=== PATIENT | female | born 1990 | race Caucasian/White ===

== ENCOUNTER 2016-05-28 19:56 | Emergency (ER) | payer MEDICAID ==
[2016-05-28] MEDS ORDERED: TDaP 0.5 ML VIAL IM.VACC ONE (22:13)
== END 2016-05-28 22:49 | disposition home or self-care (01) ==
LOC: FASTR 19:56
DX: M25.531 Pain in right wrist (principal); M79.5 Residual foreign body in soft tissue; Z23 Encounter for immunization
CPT/HCPCS: 81025; 90471